=== PATIENT | female | born 1965 | race Caucasian/White ===

== ENCOUNTER → 2024-06-26 10:10 | Outpatient (REF) | payer OTHER, SELFPAY | LOC: HWRAD 10:10 | PROVIDERS: ATTENDING PHYSICIAN Internal Medicine Hematology & Oncology; FAMILY PHYSICIAN Nurse Practitioner Adult Health | DX: C50.419 Malignant neoplasm of upper-outer quadrant of unspecified female breast (principal); D70.9 Neutropenia, unspecified; T50.995A Adverse effect of other drugs, medicaments and biological substances, initial encounter | CPT/HCPCS: 77080 ==

== ENCOUNTER 2025-02-07 22:05 | Emergency (ER) | payer OTHER, SELFPAY ==
[2025-02-08] MEDS: TORADOL 30 MG IM (03:24)
--- NOTE | 2025-02-08 03:49 | ED.GENMED ---
History of Present Illness
General
Chief Complaint: Musculo-Skeletal Complaint
Source: patient
Exam Limitations: none
Time Seen by Provider: 02/08/25 02:09
Nursing documentation reviewed up to this point in time: agreed with
History of Present Illness
History of Present Illness:
59-year-old female presenting to the emergency department today with concerns of left-sided knee pain that occurred when walking or awkwardly earlier today. Denies any specific inciting event no redness or warmth no numbness or weakness.
Review of Systems
Review of Systems
Allergies reviewed?: Yes
All Other Systems: ROS reviewed and negative except as documented in HPI and ROS
Phy Exam
Physical Exam
Physical Exam:
GENERAL: Alert , in no apparent distress
EYE: pupils equal and reactive
NECK: Supple, no significant adenopathy.
ENT: o/p clr, mmm.
CARDIAC: Regular rate and rhythm .
LUNGS: Clear breath sounds bilaterally, no acute respiratory distress, no wheezes/rales/rhonchi
ABDOMEN: Soft, without focal tenderness, no r/g, no cvat
NEUROLOGICAL: Alert and oriented, no focal neuro deficits
SKIN: Warm and dry, skin intact.
MUSCULOSKELETAL: Good range of motion of the left knee with no obvious swelling some reproducible pain to the popliteal fossa normal neurovascular examination good range of motion and strength no edema, well perfused.
PSYCH: Normal and appropriate interaction.
Course
Orders/Labs/Results
Orders:
Orders
02/07/25 22:06
Knee, Left 4 or More Views [CR Knee - Left 4 Or More View*] Urgent
Comment:
Reason For Exam: pain
02/08/25 03:14
Knee Immobilizer Left-Treatmen ONCE
Ketorolac [Toradol] 30 mg IM NOW STA
Vital Signs
Initial and Last Documented VS:
Initial Vital Signs
Temp
98.4 F
02/07/25 22:06
Last Documented Vital Signs
Temp
98.4 F
02/07/25 22:06
MDM/Problems Addressed
MDM/Problems Addressed:
59-year-old female presenting to the emergency department today with concerns of left knee pain without any specific traumatic event. Claims he just stepped awkwardly and noticed sharp pain to the back of the knee now with difficulty walking.
Worsening over the past few hours. X-ray without signs of fracture. Patient with likely soft tissue injury or internal knee derangement. Patient was given a knee immobilizer and advised for close outpatient follow-up with orthopedics.
*Pulse Oximetry
Patient hypoxic: no (96)
*Critical Care Note
Total Time (30-74mins, 75-104mins- exclusive of procedures): Not Applicable
ED Attending Note
-
Portions of this chart may have been created with voice recognition software.� Occasional wrong word or��sound alike� substitutions may have occurred due to the inherent limitations of voice recognition software.
Discharge Plan
Departure
Patient Disposition: Home (Routine Discharge)
Date of Disposition: 02/08/25
Time of Disposition: 03:50
Patient with high blood pressure during this ER visit?: No
Condition: Good
Covid-19: Not Applicable
Discharge Problem:
Internal derangement of knee
Instructions: Knee Immobilizer (DC), Knee Pain (DC)
Prescriptions:
No Action
esomeprazole magnesium [Nexium] 40 MG capsule,delayed release(DR/EC)
40 mg PO DAILY
letrozole 2.5 MG tablet
2.5 mg PO DAILY
vitamin D3-vitamin K2 (MK4) [K2 Plus D3] 1 EACH tablet
1 ea PO DAILY
Referrals:
Zachary Henderson MD [Active, Orthopedics] - Follow up in 2-3 days
UNKNOWN,NO INTERVIEW [Family Provider]
Activity Restrictions/Additional Instructions:
You came to the emergency department today with concerns of significant knee discomfort. Here your x-ray did not show any emergent findings. Please rest ice compress and elevate and follow-up closely with orthopedics for further assessment.
Return for any worsening, new or concerning symptoms.
Interventions
Interventions:
*Risk Screen - Suicide Last Done: 02/07/25 22:06
*General Assessment Last Done: 02/07/25 22:06
*ED- Fall Risk Assessment Last Done: 02/07/25 22:06
*ED COVID-19 Vaccine History Last Done: 02/07/25 22:06
*ED Influenza Vaccine History Last Done: 02/07/25 22:06
Discharge Date and Time
Print Language: UPPER SORBIAN
[2025-02-08 04:12] VITALS: BP 116/78
[2025-02-08] MEDS: PERCOCET 5/325 2 TABLET PO (04:32)
== END 2025-02-08 04:40 | disposition home or self-care (01) ==
LOC: EMR 22:05
PROVIDERS: EMERGENCY PHYSICIAN Emergency Medicine
DX: M23.92 Unspecified internal derangement of left knee (principal)
CPT/HCPCS: 96372; 99284; 29505; 73564

== ENCOUNTER 2025-03-06 06:22 | Day surgery (SDC) | payer OTHER, SELFPAY ==
[2025-03-05 09:03] LABS: Hematocrit 41.2 % (37.0-47.0); Hemoglobin 14.0 g/dL (12.0-16.0); Mean Corp Hgb Conc. 34.0 g/dL (33.0-37.0); Mean Corpuscular Volume 88.2 fL (81.0-99.0); Platelet Count 241 10^3/uL (130-400); Red Cell Dist. Width 12.0 % (11.5-14.5)
[2025-03-05 09:35] LABS: Blood Urea Nitrogen 13 mg/dl (7-17); Calcium 9.0 mg/dl (8.4-10.2); Carbon Dioxide 28 mmol/L (22-30); Chloride 104 mmol/L (98-107); Glucose 102 mg/dl (70-99); Potassium 5.0 mmol/L (3.5-5.1); Sodium 138 mmol/L (135-145); eGFR > 60.00
[2025-03-05 13:38] VITALS: BMI 32.5
[2025-03-06] VITALS (12 sets, daily range): BP systolic 61–111; BP diastolic 49–79; BMI 32.5
[2025-03-06] MEDS: TYLENOL 1000 MG PO (09:52)
--- NOTE | 2025-03-06 10:12 | PTCARENOTE ---
1 unsuccessful stick by Margaret YORK and 1 unsuccessful stick by Cynthia YORK. IV team called to insert IV. L arm only per patient.
[2025-03-06] MEDS: NORMOSOL-R/PLASMALYTE-A 1000 IV (10:28)
[2025-03-06] MEDS: DILAUDID 0.25 MG IV (13:40)
[2025-03-06] MEDS: DILAUDID 0.5 MG IV ×2 (13:54→14:29)
[2025-03-06] MEDS: ROXICODONE 5 MG PO (15:32)
--- NOTE | 2025-03-06 16:22 | W.IMMPOSTOP ---
Surgical Immed Post Op Note
-
Primary Surgeon: Dameon Severino MD
Assisting Surgeon:
Pre-op Diagnosis: left knee medial meniscus tear
Post-op Diagnosis: left knee medial meniscus tear
Procedure Performed: left knee arthroscopic partial medial meniscectomy
Anesthesia Type: general
Specimen / Cultures: none
Estimated Blood Loss: 2mL
Complications: none apparent
Operative Findings: grade 3 chondrosis of medial tibial plateau, medial femoral condyle patella; grade 4 chondrosis of trochlea; undersurface tear of posterior horn of medial meniscus
Operative dictation #: [id number]
== END 2025-03-06 15:58 | disposition home or self-care (01) ==
LOC: SDS 06:22
PROVIDERS: ATTENDING PHYSICIAN Student in an Organized Health Care Education/Training Program; FAMILY PHYSICIAN Nurse Practitioner Adult Health
DX: S83.242A Other tear of medial meniscus, current injury, left knee, initial encounter (principal); W18.49XA Other slipping, tripping and stumbling without falling, initial encounter; Y93.01 Activity, walking, marching and hiking
CPT/HCPCS: 29881; 80048; 85027; 93005